=== PATIENT | female | born 1960 | race Caucasian/White ===

== ENCOUNTER 2017-05-17 17:04 | Emergency (ER) | payer OTHER ==
[~2017-05-17] VITALS: Ht 154.9 cm; Wt 100.0 kg
[~2017-05-17 17:04] MED LIST: CEPHALEXIN500 MG PO; GNP OMEPRAZOLE20 MG PO; HYDROCHLOROT12.5 MG PO; KEFLEX500 MG PO; ROBITUSSIN AC10 ML PO; TESSALON PER100 MG PO; ZITHROMAX250 MG PO
[2017-05-17 18:10] LABS: INFLUENZA A NONE DETECTED (NONE DETECT); INFLUENZA B NONE DETECTED (NONE DETECT)
[2017-05-17] MEDS ORDERED: AMOXICILLIN500 M2 PO (18:12)
[2017-05-17 18:24] VITALS: BP 144/74
== END 2017-05-17 18:24 | disposition home or self-care (01) | DRG 153 ==
LOC: ED 17:04
PROVIDERS: Family Medicine
DX: J02.0 Streptococcal pharyngitis (principal); R09.81 Nasal congestion; R50.9 Fever, unspecified; R11.0 Nausea; R51 Headache

== ENCOUNTER 2017-06-30 21:18 | Emergency (ER) | payer OTHER ==
[~2017-06-30] VITALS: Ht 154.9 cm; Wt 106.0 kg
[~2017-06-30 21:18] MED LIST changes: +AMOXICILLIN500 M2 PO
[2017-06-30 22:38] LABS: INFLUENZA A NONE DETECTED (NONE DETECT); INFLUENZA B NONE DETECTED (NONE DETECT)
[2017-06-30] MEDS ORDERED: AMOX/K CLAV875 M1 PO (22:47)
[2017-06-30] MEDS ORDERED: FLONASE AL50 MCG/ACT (22:47)
[2017-06-30 23:20] VITALS: BP 148/73
== END 2017-06-30 23:10 | disposition home or self-care (01) | DRG 153 ==
LOC: ED 21:18
PROVIDERS: Emergency Medicine
DX: J02.0 Streptococcal pharyngitis (principal); J32.9 Chronic sinusitis, unspecified; R09.81 Nasal congestion; R05 Cough

== ENCOUNTER 2018-11-07 17:58 | Emergency (ER) | payer OTHER ==
[~2018-11-07] VITALS: Ht 154.9 cm; Wt 109.1 kg
[~2018-11-07 17:58] MED LIST changes: +AMOX/K CLAV875 M1 PO; +FLONASE AL50 MCG/ACT
[2018-11-07 19:00] LABS: HEMATOCRIT 41.1 % (37.0-47.0); HEMOGLOBIN 12.8 g/dl (12.0-16.0); IMMATURE GRANULOCYTES 0.3 % (0.0-5.0); MEAN CELL VOLUME 84.4 fL CALC (80.0-100.0); MEAN CORPUSCULAR HGB 26.3 pG CALC (26.0-32.0); MEAN CORPUSCULAR HGB CONC 31.1 g/L CALC (32.0-36.0); NEUT# 7.56 thou/uL (2.00-7.15); RED BLOOD COUNT 4.87 mill/uL (4.20-5.60); RED CELL DISTRI WIDTH 13.4 % (11.5-15.5)
[2018-11-07 19:21] LABS: ALBUMIN 4.2 g/dL (3.2-5.0); ALKALINE PHOSPHATASE 113 u/l (38-126); ANION GAP 16 (6-22 (CALC)); BILIRUBIN, TOTAL 0.8 mg/dL (0.0-1.4); BUN 13 mg/dL (7-17); BUN/CREATININE RATIO 23 (12-20 (CALC)); CARBON DIOXIDE 22 mmol/l (22-30); CHLORIDE 101 mmol/l (95-108); CREATININE 0.6 mg/dL (0.5-1.0); GFR > 60 ML/MIN (>=60 (CALC)); GFR FOR AFR.AMER. > 60 ML/MIN (>=60 (CALC)); POTASSIUM 4.4 mmol/l (3.5-5.1); SGOT/AST 26 u/l (14-36); SODIUM 135 mmol/l (137-146); TOTAL PROTEIN 8.1 g/dL (6.3-8.2)
[2018-11-07 22:12] LABS: URINE BILIRUBIN - DIPSTICK NEGATIVE (NEGATIVE); URINE BLOOD DIPSTICK NEGATIVE (NEGATIVE); URINE COLOR YELLOW; URINE GLUCOSE - DIPSTICK NEGATIVE (NEGATIVE); URINE KETONE NEGATIVE (NEGATIVE); URINE LEUK ESTERASE TRACE (Negative); URINE NITRITE - DIPSTICK NEGATIVE (Negative); URINE PROTEIN - DIPSTICK NEGATIVE (NEG-TRACE); URINE UROBILINOGEN - DIPSTICK 0.2 E.U./dL (0.2)
[2018-11-07 22:13] LABS: URINE CLARITY CLEAR
[2018-11-07 23:30] VITALS: BP 124/59
== END 2018-11-07 23:30 | disposition home or self-care (01) | DRG 864 ==
LOC: ED 17:58
PROVIDERS: Emergency Medicine
DX: R50.9 Fever, unspecified (principal); I10 Essential (primary) hypertension

== ENCOUNTER 2018-11-12 01:18 | Emergency (ER) | payer OTHER ==
[~2018-11-12] VITALS: Ht 154.9 cm; Wt 104.5 kg
[2018-11-12] MEDS ORDERED: HYDROCHLOROT12.5 MG PO (01:35)
[2018-11-12] MEDS ORDERED: Levaquin PO (01:35)
[2018-11-12] MEDS ORDERED: MAXZIDE-25MG1 COMBO PO (01:49)
[2018-11-12 02:11] VITALS: BP 176/51
== END 2018-11-12 02:18 | disposition home or self-care (01) | DRG 301 ==
LOC: ED 01:18
DX: I87.2 Venous insufficiency (chronic) (peripheral) (principal); I10 Essential (primary) hypertension; R60.9 Edema, unspecified; E66.01 Morbid (severe) obesity due to excess calories

== ENCOUNTER 2018-11-26 00:36 | Emergency (ER) | payer OTHER ==
[~2018-11-26] VITALS: Ht 154.9 cm; Wt 106.4 kg
[~2018-11-26 00:36] MED LIST changes: +Levaquin PO; +MAXZIDE-25MG1 COMBO PO
[2018-11-26] MEDS ORDERED: PREDNISONE50 MG PO (01:12)
[2018-11-26 01:24] VITALS: BP 167/77
== END 2018-11-26 01:25 | disposition home or self-care (01) | DRG 607 ==
LOC: ED 00:36
DX: L27.0 Generalized skin eruption due to drugs and medicaments taken internally (principal); L29.9 Pruritus, unspecified; T36.8X5A Adverse effect of other systemic antibiotics, initial encounter; Y92.009 Unspecified place in unspecified non-institutional (private) residence as the place of occurrence of the external cause

== ENCOUNTER 2019-08-16 16:46 | Emergency (ER) | payer OTHER ==
[~2019-08-16 16:46] MED LIST changes: +PREDNISONE50 MG PO
[2019-08-16] MEDS ORDERED: ASPIRIN81 MG PO (17:19)
[2019-08-16] MEDS ORDERED: TESSALON PER100 MG PO (20:03)
[2019-08-16] MEDS ORDERED: PREDNISONE10 MG PO (20:03)
[2019-08-16] MEDS ORDERED: VENTOLIN HFA IN (20:03)
[2019-08-16 20:11] VITALS: BP 158/84
== END 2019-08-16 20:17 | disposition home or self-care (01) | DRG 153 ==
LOC: ED 16:46
DX: J06.9 Acute upper respiratory infection, unspecified (principal); I10 Essential (primary) hypertension

== ENCOUNTER 2019-11-13 14:04 | Emergency (ER) | payer OTHER ==
[~2019-11-13 14:04] MED LIST changes: +ASPIRIN81 MG PO; +PREDNISONE10 MG PO; +VENTOLIN HFA IN
[2019-11-13] MEDS ORDERED: ZESTRIL10 M1 PO (14:35)
[2019-11-13] MEDS ORDERED: LEVOTHYROXIN25 MC1 PO (14:35)
[2019-11-13] MEDS ORDERED: PENICILLN VK500 MG PO (15:10)
[2019-11-13 15:25] VITALS: BP 187/93
== END 2019-11-13 15:25 | disposition home or self-care (01) | DRG 158 ==
LOC: ED 14:04
DX: K04.7 Periapical abscess without sinus (principal); K02.9 Dental caries, unspecified; M84.68XA Pathological fracture in other disease, other site, initial encounter for fracture; I10 Essential (primary) hypertension

== ENCOUNTER 2020-06-01 04:34 | Emergency (ER) | payer OTHER ==
[~2020-06-01] VITALS: Ht 154.9 cm; Wt 104.5 kg
[~2020-06-01 04:34] MED LIST changes: +LEVOTHYROXIN25 MC1 PO; +PENICILLN VK500 MG PO; +ZESTRIL10 M1 PO
[2020-06-01] MEDS ORDERED: HYDROCHLOROT25 MG PO (05:02)
[2020-06-01] MEDS ORDERED: METFORMIN500 M2 PO (05:02)
[2020-06-01 05:56] LABS: HEMATOCRIT 36.3 % (37.0-47.0); HEMOGLOBIN 11.3 g/dl (12.0-16.0); IMMATURE GRANULOCYTES 0.4 % (0.0-5.0); MEAN CELL VOLUME 84.6 fL CALC (80.0-100.0); MEAN CORPUSCULAR HGB 26.3 pG CALC (26.0-32.0); MEAN CORPUSCULAR HGB CONC 31.1 g/dL CAL (32.0-36.0); NEUT# 7.44 thou/uL (2.00-7.15); RED BLOOD COUNT 4.29 mill/uL (4.20-5.60); RED CELL DISTRI WIDTH 13.4 % (11.5-15.5)
[2020-06-01 05:56] LABS: URINE BLOOD DIPSTICK SMALL (NEGATIVE); URINE COLOR YELLOW; URINE GLUCOSE - DIPSTICK NEGATIVE (NEGATIVE); URINE KETONE NEGATIVE (NEGATIVE); URINE LEUK ESTERASE NEGATIVE (NEGATIVE); URINE NITRITE - DIPSTICK NEGATIVE (Negative); URINE PH 5.5 (4.5-8.0); URINE PROTEIN - DIPSTICK 100 mg/dL (NEG-TRACE); URINE SPECIFIC GRAVITY >=1.030; URINE UROBILINOGEN - DIPSTICK 0.2 E.U./dL (0.2)
[2020-06-01 06:02] LABS: URINE BILIRUBIN - DIPSTICK NEGATIVE (NEGATIVE)
[2020-06-01 06:09] LABS: ALBUMIN 3.4 g/dL (3.2-5.0); ALKALINE PHOSPHATASE 95 u/l (38-126); BILIRUBIN, TOTAL 0.7 mg/dL (0.0-1.4); BUN 8 mg/dL (7-17); BUN/CREATININE RATIO 12 (12-20 (CALC)); CHLORIDE 100 mmol/l (95-108); CREATININE 0.6 mg/dL (0.5-1.0); GFR > 60 ML/MIN (>=60 (CALC)); GFR FOR AFR.AMER. > 60 ML/MIN (>=60 (CALC)); LIPASE 23 u/l (23-300); SGOT/AST 20 u/l (14-36); SODIUM 136 mmol/l (137-146); TOTAL PROTEIN 6.5 g/dL (6.3-8.2)
[2020-06-01 06:20] LABS: URINE BACTERIA MANY hpf; URINE SQUAMOUS EPITHELIAL CELL FEW EPI/hpf (0-FEW)
[2020-06-01 06:21] LABS: MYOGLOBIN 51 ng/mL (0 - 62)
[2020-06-01 06:24] LABS: AMYLASE < 30 u/l (30-110); ANION GAP 10 (6-22 (CALC)); CARBON DIOXIDE 29 mmol/l (22-30); POTASSIUM 3.4 mmol/l (3.5-5.1)
[2020-06-01] MEDS ORDERED: KEFLEX500 M1 PO (09:37)
[2020-06-01] MEDS ORDERED: ZOFRAN4 MG/TAB PO (09:37)
[2020-06-01 10:46] VITALS: BP 157/75
== END 2020-06-01 10:48 | disposition home or self-care (01) | DRG 690 ==
LOC: ED 04:34
PROVIDERS: Emergency Medicine
DX: N39.0 Urinary tract infection, site not specified (principal); R59.0 Localized enlarged lymph nodes; E11.9 Type 2 diabetes mellitus without complications; I10 Essential (primary) hypertension; Z79.84 Long term (current) use of oral hypoglycemic drugs
CPT/HCPCS: Q9967

== ENCOUNTER 2021-12-20 20:30 | Emergency (ER) | payer OTHER ==
[~2021-12-20] VITALS: Ht 154.9 cm; Wt 100.0 kg
[~2021-12-20 20:30] MED LIST changes: +HYDROCHLOROT25 MG PO; +KEFLEX500 M1 PO; +METFORMIN500 M2 PO; +ZOFRAN4 MG/TAB PO
[2021-12-20 20:44] VITALS: BP 168/67
[2021-12-20 20:46] VITALS: BP 169/61
[2021-12-20 20:48] LABS: HEMATOCRIT 40.1 % (37.0-47.0); HEMOGLOBIN 12.6 g/dl (12.0-16.0); IMMATURE GRANULOCYTES 0.2 % (0.0-5.0); MEAN CORPUSCULAR HGB 26.7 pG CALC (26.0-32.0); MEAN CORPUSCULAR HGB CONC 31.4 g/dL CAL (32.0-36.0); NEUT# 5.02 thou/uL (2.00-7.15); RED BLOOD COUNT 4.72 mill/uL (4.20-5.60); RED CELL DISTRI WIDTH 13.7 % (11.5-15.5)
[2021-12-20] MEDS ORDERED: ASPIRIN81 MG PO (20:54)
[2021-12-20 21:01] VITALS: BP 155/71
[2021-12-20 21:13] LABS: ALKALINE PHOSPHATASE 107 u/l (38-126); ANION GAP 10 (6-22 (CALC)); BUN 11 mg/dL (7-17); BUN/CREATININE RATIO 13 (12-20 (CALC)); CARBON DIOXIDE 26 mmol/l (22-30); CHLORIDE 106 mmol/l (95-108); CPK 107 u/l (30-165); CREATININE 0.9 mg/dL (0.5-1.0); GFR > 60 ML/MIN (>=60 (CALC)); GFR FOR AFR.AMER. > 60 ML/MIN (>=60 (CALC)); POTASSIUM 3.9 mmol/l (3.5-5.1); SODIUM 139 mmol/l (137-146); TOTAL PROTEIN 7.5 g/dL (6.3-8.2)
[2021-12-20 21:18] LABS: ALBUMIN 4.1 g/dL (3.2-5.0); BILIRUBIN, TOTAL 0.4 mg/dL (0.0-1.4); SGOT/AST 56 u/l (14-36)
[2021-12-20 21:25] LABS: MYOGLOBIN 332 ng/mL (0 - 62)
[2021-12-20 21:30] VITALS: BP 152/60
[2021-12-20] MEDS ORDERED: VOLTAREN75 MG PO (23:10)
[2021-12-20] MEDS ORDERED: TRAMADOL HCL50 MG PO (23:10)
[2021-12-20 23:48] VITALS: BP 152/60
== END 2021-12-21 00:18 | disposition home or self-care (01) | DRG 605 ==
LOC: ED 20:30
PROVIDERS: Family Medicine
DX: S20.212A Contusion of left front wall of thorax, initial encounter (principal); S30.1XXA Contusion of abdominal wall, initial encounter; I10 Essential (primary) hypertension; E11.9 Type 2 diabetes mellitus without complications; I87.2 Venous insufficiency (chronic) (peripheral); V49.40XA Driver injured in collision with unspecified motor vehicles in traffic accident, initial encounter; Z79.84 Long term (current) use of oral hypoglycemic drugs
CPT/HCPCS: Q9967

== ENCOUNTER 2022-05-17 14:31 | Emergency (ER) | payer SELFPAY ==
[~2022-05-17] VITALS: Ht 154.9 cm; Wt 99.5 kg
[2022-05-17] VITALS (8 sets, daily range): BP systolic 146–176; BP diastolic 45–78
[~2022-05-17 14:31] MED LIST changes: +TRAMADOL HCL50 MG PO; +VOLTAREN75 MG PO
[2022-05-17 15:30] LABS: HEMATOCRIT 40.2 % (37.0-47.0); HEMOGLOBIN 13.2 g/dl (12.0-16.0); IMMATURE GRANULOCYTES 0.1 % (0.0-5.0); MEAN CELL VOLUME 81.2 fL CALC (80.0-100.0); MEAN CORPUSCULAR HGB 26.7 pG CALC (26.0-32.0); MEAN CORPUSCULAR HGB CONC 32.8 g/dL CAL (32.0-36.0); NEUT# 4.62 thou/uL (2.00-7.15); RED BLOOD COUNT 4.95 mill/uL (4.20-5.60)
[2022-05-17 16:12] LABS: URINE BLOOD DIPSTICK LARGE (NEGATIVE); URINE COLOR YELLOW; URINE GLUCOSE - DIPSTICK NEGATIVE (NEGATIVE); URINE KETONE 40 mg/dL (NEGATIVE); URINE LEUK ESTERASE NEGATIVE (NEGATIVE); URINE PROTEIN - DIPSTICK NEGATIVE (NEG-TRACE); URINE SPECIFIC GRAVITY 1.025; URINE UROBILINOGEN - DIPSTICK 0.2 E.U./dL (0.2)
[2022-05-17 16:16] LABS: ALBUMIN 3.9 g/dL (3.2-5.0); ALKALINE PHOSPHATASE 94 u/l (38-126); ANION GAP 12 (6-22 (CALC)); BUN 12 mg/dL (7-17); BUN/CREATININE RATIO 18 (12-20 (CALC)); CARBON DIOXIDE 24 mmol/l (22-30); CHLORIDE 103 mmol/l (95-108); CREATININE 0.7 mg/dL (0.5-1.0); GFR FOR AFR.AMER. > 60 ML/MIN (>=60 (CALC)); GFR OTHER RACES > 60 ML/MIN (>=60 (CALC)); LIPASE 34 u/l (23-300); POTASSIUM 3.5 mmol/l (3.5-5.1); SGOT/AST 30 u/l (14-36); SODIUM 135 mmol/l (137-146); TOTAL PROTEIN 7.1 g/dL (6.3-8.2)
[2022-05-17 16:28] LABS: BILIRUBIN, TOTAL 0.6 mg/dL (0.0-1.4)
[2022-05-17 16:34] LABS: URINE NITRITE - DIPSTICK NEGATIVE (Negative)
[2022-05-17 16:35] LABS: URINE BILIRUBIN - DIPSTICK NEGATIVE (NEGATIVE); URINE RBC 25-50 RBC/hpf (0-5); URINE WBC 0-2 WBC/hpf (0-5)
[2022-05-17] MEDS ORDERED: ONDANSETRON4 MG PO (17:28)
[2022-05-17] MEDS ORDERED: IMODIUM2 MG PO (17:28)
== END 2022-05-17 17:56 | disposition home or self-care (01) | DRG 392 ==
LOC: ED 14:31
PROVIDERS: Family Medicine
DX: A08.4 Viral intestinal infection, unspecified (principal); I10 Essential (primary) hypertension; E11.9 Type 2 diabetes mellitus without complications; Z79.84 Long term (current) use of oral hypoglycemic drugs